=== PATIENT | female | born 1965 | race Caucasian/White ===

== ENCOUNTER → 2020-05-31 | Outpatient (CLI) | payer OTHER ==
[~2020-05-31] MED LIST: NOHOMEMEDICATIONS
== END ==
LOC: M.RAD 08:56
PROVIDERS: ATTEND Internal Medicine Gastroenterology
DX: K90.0 Celiac disease (principal); N91.2 Amenorrhea, unspecified; N95.9 Unspecified menopausal and perimenopausal disorder